=== PATIENT | male | born 1965 | race Caucasian/White ===

== ENCOUNTER → 2019-10-07 | Outpatient (CLI) | payer OTHER ==
[2019-10-07 08:31] LABS: Basophils # (A) 0.1 k/uL (0-0.2); Basophils % (A) 2 %; Eosinophils # (A) 0.1 k/uL (0-0.7); Eosinophils % (A) 2 %; HCT 46.6 % (39.0-53.0); HGB 15.2 gm/dL (13.0-17.5); Lymphocytes # (A) 1.6 k/uL (1.0-4.8); Lymphocytes % (A) 39 %; MCH 31.1 pg (25.0-35.0); MCHC 32.5 g/dL (31.0-37.0); MCV 95.7 fL (80.0-100.0); Mean Platelet Volume 7.5; Monocytes # (A) 0.3 k/uL (0-1.0); Monocytes % (A) 7 %; Neutrophils # (A) 1.9 k/uL (1.3-7.7); Neutrophils % (A) 47 %; Platelet Count 198 k/uL (150-450); RBC 4.88 m/uL (4.30-5.90); WBC 4.1 k/uL (3.8-10.6)
[2019-10-07 17:49] LABS: African American GFR (CKD) 119.9 (60.0-200.0); Albumin 4.9 g/dL (3.80-4.90); Albumin/Globulin Ratio 2.33 (1.60-3.17); Anion Gap 8.5 mmol/L (4.00-12.00); BUN/Creat Ratio 13.75 Ratio (12.00-20.00); Calcium 9.4 mg/dL (8.7-10.3); Carbon Dioxide 26.5 mmol/L (21.6-31.8); Chol/HDL Ratio 2.03; Globulin 2.1 g/dL (1.6-3.3); LDL Cholesterol,Calculated 97.6 mg/dL (0.0-131.0); Non-African American GFR(CKD) 103.4 (60.0-200.0); Potassium 4.8 mmol/L (3.5-5.5); Total Bilirubin 0.3 mg/dL (0.2-1.2); VLDL Calculation 25.4 mg/dL (5.00-40.00)
== END ==
LOC: LABWHC1 08:11
PROVIDERS: ATTEND Internal Medicine Cardiovascular Disease
DX: I10 Essential (primary) hypertension (principal)
CPT/HCPCS: 36415; 80053; 80061; 85025

== ENCOUNTER 2021-12-05 09:19 | Day surgery (SDC) | payer OTHER ==
[2021-12-02 15:50] VITALS: BMI 23.7
[~2021-12-05 09:19] MED LIST: LACTATED RINGERS 1,000 ML IV SCH; LIDOCAINE 1% (10MG/ML) FOR IV START INTRADERMA PRN; ONDANSETRON 4 MG/2 ML VIAL IVP PRN
[2021-12-05 09:45] VITALS: PULSE 65; RESP 16; TEMP 97.6
[2021-12-05] MEDS ORDERED: PROPOFOL 10 MG/ML 20 ML VIAL IV ONE (10:52)
--- NOTE | 2021-12-05 11:14 | P.PCN ---
Date of Procedure: 12/05/21 Procedure(s) Performed: BRIEF HISTORY: Patient is a 55-year-old pleasant white male scheduled for an elective colonoscopy as a part of surveillance screening for colorectal neoplasia. PROCEDURE PERFORMED: Colonoscopy with biopsy. PREOPERATIVE DIAGNOSIS: Screening For colon cancer. IV sedation per Anesthesia. PROCEDURE: After informed consent was obtained, the patient, was brought into the endoscopy unit. IV sedation was administered by Anesthesia under continuous monitoring. Digital rectal examination was normal. Initially the Olympus CF-160 flexible video colonoscope was then inserted in the rectum, gradually advanced into the cecum without any difficulty. Careful examination was performed as the scope was gradually being withdrawn. Ileocecal valve and the appendiceal orifice were visualized and appeared normal. Prep was excellent. Mucosa of the cecum, ascending colon, transverse colon, descending colon, sigmoid colon, and rectum appeared normal. The proximal rectum there was a 3 mm sessile polyp that was removed by cold biopsy. Retroflexion was performed in the rectum and no lesions were seen. The patient tolerated the procedure well. IMPRESSION: 3 mm sessile proximal rectal polyp status post cold biopsy Rest of the colon appeared normal RECOMMENDATIONS: Findings of this examination were discussed with the patient as well as his family. He was advised to follow with the biopsy results. If the biopsies adenoma he can have a repeat colonoscopy in 5 years..
[2021-12-05 11:28] VITALS: BP 154/89
== END 2021-12-05 11:57 | disposition home or self-care (01) ==
LOC: ORWHC2ENDO 09:19
PROVIDERS: ATTEND Internal Medicine Gastroenterology
DX: Z12.11 Encounter for screening for malignant neoplasm of colon (principal); K62.1 Rectal polyp; I10 Essential (primary) hypertension; Z79.899 Other long term (current) drug therapy; D64.9 Anemia, unspecified; Z98.890 Other specified postprocedural states
CPT/HCPCS: 88305; 45380; J2704

== ENCOUNTER → 2024-03-13 | Outpatient (CLI) | payer OTHER ==
--- NOTE | 2024-04-04 15:43 | MR ---
Patient: Ash Connor Ordering Physician: Unknown, Unknown ID: [id number] Phone, Pager: Phone: N /A Pager: N/A : [phone] Age/Gender: 58Y, M Primary Location: N/A Procedure: MR Prostate wo/w con Study Date: 03/13/2024 5:04:02 AM EXAMINATION TYPE: MR Prostate wo/w con DATE OF EXAM: 03/15/2024 8:23 AM COMPARISON: None. CLINICAL INDICATION: Elevated PSA. TECHNIQUE: Multi-planar, multi-sequence imaging of the pelvis is performed prior to and following the uncomplicated administration of bolus intravenous gadolinium. CONTRAST: 7 cc Gadavist. Interpretive Criteria: PI-RADS v2.1 SERUM PSA: 02-03-24 = 6.51 01-26-24 = 5.27 SURGICAL PATHOLOGY: No data available. FINDINGS: Prostatic dimensions: 4.6 x 4.7 x 3.5 cm. "Bullet" Volume:49.53 (PSA density=0.13 ng/mL/mL) CENTRAL GLAND (Central and Transition Zones/CZ+TZ): Multiple bilateral, heterogenous appearing hypertrophic stromal nodules, without suspicious lesion. M edian lobe hypertrophy with protrusion into the base of the bladder. (PI-RADS 2) PERIPHERAL ZONE (PZ): 6 mm right posterior lateral peripheral high DWI and low ADC signal lesion in the mid gland/apex. (PI -RADS 4) SEMINAL VESICLES (SV): Symmetric and unremarkable. PERIPROSTATIC TISSUES: Unremarkable. LYMPH NODES: No enlarged pelvic lymph node. REMAINING PELVIS: Bladder wall is within normal limits given distention. No abnormal free or organized intrapelvic fluid collection. No pathologic bowel dilation or mural thickening. Bilateral fat containing inguinal hernias. High T2 signal near the insertion of the hamstrings on the left. OSSEOUS STRUCTURES: No suspicious osseous abnormality. IMPRESSION: 1. Right posterior peripheral zone apex/mid gland 6 mm (PI-RADS 4) 2. Mild BPH, estimated gland volume 49.53 mL. 3. No suspicious osseous lesion. No lymphadenopathy. No evidence of prostate adenocarcinoma involving the periprostatic tissues. 4. Left hamstring high T2 signal correlate with pain and history of injury.
== END | disposition home or self-care (01) ==
LOC: RADMRIMAIN 06:00
PROVIDERS: ATTEND Urology
DX: R97.20 Elevated prostate specific antigen [PSA] (principal); N40.0 Benign prostatic hyperplasia without lower urinary tract symptoms; M54.6 Pain in thoracic spine
CPT/HCPCS: 72197; A9585

== ENCOUNTER → 2024-04-04 | Outpatient (CLI) | payer OTHER ==
[2024-04-04 15:09] LABS: Basophils # (A) 0.06 X 10*3/uL (0.00-0.10); Basophils % (A) 1.1 %; Eosinophils # (A) 0.04 X 10*3/uL (0.04-0.35); Eosinophils % (A) 0.7 %; HCT 37.8 % (39.6-50.0); Lymphocytes # (A) 1.36 X 10*3/uL (0.90-5.00); Lymphocytes % (A) 24.2 %; MCH 31.3 pg (27.0-32.0); MCHC 34.4 g/dL (32.0-37.0); MCV 91.1 FL (80.0-97.0); Monocytes # (A) 0.48 X 10*3/uL (0.20-1.00); Monocytes % (A) 8.5 %; NRBC Per 100 WBC 0 X 10*3/uL (0.00-0.01); Neutrophils # (A) 3.66 X 10*3/uL (1.80-7.70); Neutrophils % (A) 65.1 %; Platelet Count 251 X 10*3/uL (140-440); RBC 4.15 X 10*6/uL (4.40-5.60); RDW 11.9 % (11.5-14.5); WBC 5.62 X 10*3/uL (4.50-10.00)
[2024-04-04 15:27] LABS: BUN/Creat Ratio 15.43 Ratio (12.00-20.00); Blood Urea Nitrogen 10.8 mg/dL (9.0-27.0); Calcium 9.3 mg/dL (8.7-10.3); Carbon Dioxide 24.4 mmol/L (21.6-31.8); Chloride 92 mmol/L (96-109); Glucose 102 mg/dL (70-110); Potassium 4.8 mmol/L (3.5-5.5); Sodium 128 mmol/L (135-145)
== END | disposition home or self-care (01) ==
LOC: LABWHC1 08:30
PROVIDERS: ATTEND Urology
DX: Z01.818 Encounter for other preprocedural examination
CPT/HCPCS: 36415; 80048; 85025

== ENCOUNTER 2024-04-11 11:40 | Day surgery (SDC) | payer OTHER ==
[2024-04-06 09:41] VITALS: BMI 23.0
--- NOTE | 2024-04-07 07:05 | P.GSHP ---
History of Present Illness H&P Date: 04/07/24 Chief Complaint: Elevated PSA level The patient is a 58-year-old white male with a gradually rising PSA level which was most recently 6.51. JULIANNA revealed the prostate to be mildly enlarged with focal firmness at the lateral aspect of the right mid lobe. MRI shows a prostate volume of 49.53 cc, with a 6 mm right peripheral zone PI-RADS 4 lesion at the mid gland level. He has been advised to undergo MRI fusion biopsies and comes for this reason. - Cardiovascular Cardiovascular: Reports high blood pressure - Genitourinary (Male) Genitourinary: Reports nocturia Past Medical History Past Medical History: Hypertension Additional Past Medical History / Comment(s): "low hgb", elevated PSA History of Any Multi-Drug Resistant Organisms: None Reported Additional Past Surgical History / Comment(s): ORIF lt shoulder, lt carpel tunnel October 10, 2021 Additional Past Anesthesia/Blood Transfusion Reaction / Comment(s): "felt like worse hangeover I have ever had with shoulder surgery" Smoking Status: Never smoker - Past Family History Mother Family Medical History: No Reported History Father Family Medical History: CVA/TIA, Hypertension Medications and Allergies Home Medications Medication Instructions Recorded Confirmed Type Losartan/Hydrochlorothiazide 1 tab PO DAILY 04/06/24 04/06/24 History [Losartan-Hctz 100-12.5 mg Tab] Allergies Allergy/AdvReac Type Severity Reaction Status Date / Time No Known Allergies Allergy Verified 04/06/24 08:39 Surgical - Exam - General well developed ( out of passed a stone), well nourished, no distress - Respiratory normal respiratory effort - Abdomen Abdomen: soft, non tender, no guarding, no rigid, no rebound - Genitourinary normal penis with no external lesions (-Aspirin), testicles non-tender - Rectum Rectum: normal sphincter tone, no masses, other (Prostate mildly enlarged with firmness noted laterally at the right mid gland.) - Psychiatric oriented to time, oriented to person, oriented to place, speech is normal, memory intact Assessment and Plan (1) Elevated prostate specific antigen [PSA] Status: Acute Code(s): R97.20 - ELEVATED PROSTATE SPECIFIC ANTIGEN [PSA] SNOMED Code(s): 267045267 Plan: MRI fusion transrectal biopsies of the prostate. The procedure has been reviewed in detail with the patient, who is aware of potential risks which in clude anesthesia, bleeding, and infection. The patient is aware that the procedure will be performed by Dr. Farias.
[2024-04-11 12:26] VITALS: TEMP 97.8
[2024-04-11] MEDS: GENTAMICIN 40 MG/ML 2 ML VIAL IM PRN (12:27)
[2024-04-11] MEDS: LACTATED RINGERS 1,000 ML IV SCH (12:27)
[2024-04-11] MEDS: LACTATED RINGERS 1,000 ML IV ONE (12:38)
[2024-04-11] MEDS ORDERED: LIDOCAINE 1% INJ 10MG/ML (20 ML MDV) ONE (15:00)
[2024-04-11] MEDS ORDERED: PROPOFOL 10 MG/ML 20 ML VIAL IV ONE (15:00)
--- NOTE | 2024-04-11 15:48 | P.OP ---
Date of Procedure: 04/11/24 Preoperative Diagnosis: Elevated PSA Postoperative Diagnosis: Same Procedure(s) Performed: MRI fusion biopsy of the prostate Anesthesia: MAC Surgeon: Esa Farias Pathology: other (Prostate biopsies) Condition: stable Disposition: PACU Indications for Procedure: The patient is a 58-year-old white male with a gradually rising PSA level which was most recently 6.51. JULIANNA revealed the prostate to be mildly enlarged with focal firmness at the lateral aspect of the right mid lobe. MRI shows a prostate volume of 49.53 cc, with a 6 mm right peripheral zone PI-RADS 4 lesion at the mid gland level. He has been advised to undergo MRI fusion biopsies and comes for this reason. Description of Procedure: The patient was taken to the operating room and placed in the left lateral decubitus position. The [place] transrectal ultrasound probe was placed intrarectally. It was then placed within the stand of the [employer] MRI/TRUS Fusion for Prostate Biopsy system. The prostate was imaged in both the axial and sagittal planes,L. Using the Biopsy gun, 4 biopsies were obtained from the target lesion, there were was one lesions, . The remaining 12 biopsies of the peripheral zone were obtained utilizing a standard template. Once the procedure was completed, the ultrasound probe was removed. The patient tolerated the procedure well was taken to the recovery room stable condition
[2024-04-11 16:03] VITALS: BP 135/82; PULSE 68; RESP 16
== END 2024-04-11 16:17 | disposition home or self-care (01) ==
LOC: OR 11:40
PROVIDERS: ATTEND Urology
DX: C61 Malignant neoplasm of prostate (principal); I10 Essential (primary) hypertension; Z79.899 Other long term (current) drug therapy
CPT/HCPCS: 55700; 88305; J1580; J2001; J2704

== ENCOUNTER → 2024-07-11 | Outpatient (CLI) | payer OTHER ==
[2024-07-11 16:35] LABS: Basophils # (A) 0.03 X 10*3/uL (0.00-0.10); Basophils % (A) 0.4 %; Eosinophils # (A) 0.02 X 10*3/uL (0.04-0.35); Eosinophils % (A) 0.3 %; HCT 40.1 % (39.6-50.0); Lymphocytes # (A) 1.26 X 10*3/uL (0.90-5.00); Lymphocytes % (A) 17.8 %; MCH 31.2 pg (27.0-32.0); MCHC 34.9 g/dL (32.0-37.0); MCV 89.3 FL (80.0-97.0); Monocytes # (A) 0.43 X 10*3/uL (0.20-1.00); Monocytes % (A) 6.1 %; NRBC Per 100 WBC 0 X 10*3/uL (0.00-0.01); Neutrophils # (A) 5.32 X 10*3/uL (1.80-7.70); Neutrophils % (A) 75.3 %; Platelet Count 274 X 10*3/uL (140-440); RBC 4.49 X 10*6/uL (4.40-5.60); RDW 11.9 % (11.5-14.5); WBC 7.07 X 10*3/uL (4.50-10.00)
[2024-07-11 16:45] LABS: Blood Urea Nitrogen 11.2 mg/dL (9.0-27.0); Carbon Dioxide 25.8 mmol/L (21.6-31.8); Chloride 91 mmol/L (96-109); Glucose 104 mg/dL (70-110); Potassium 4.6 mmol/L (3.5-5.5); Sodium 128 mmol/L (135-145)
[2024-07-11 16:46] LABS: Calcium 9.4 mg/dL (8.7-10.3)
== END | disposition home or self-care (01) ==
LOC: LABPAT 11:45
PROVIDERS: ATTEND Urology
DX: Z01.812 Encounter for preprocedural laboratory examination (principal); C61 Malignant neoplasm of prostate
CPT/HCPCS: 80048; 85025; 86850; 86900; 86901

== ENCOUNTER 2024-07-13 10:18 | Day surgery (SDC) | payer OTHER ==
--- NOTE | 2024-07-11 15:18 | P.HPIHPCON ---
History of Present Illness H&P Date: 07/11/24 Chief Complaint: Prostate cancer This is a 58-year-old male with history of [place] 7(3+4) prostate cancer, option of radiation therapy versus robotic radical prostatectomy was discussed in details. Risk-benefit and rationale of each approach were discussed, he agreed to proceed with a robotic radical prostatectomy. Aware of the risk which includes but not limited to bleeding, infection, injury to nearby organs, urinary incontinence, erectile dysfunction. Risk of cancer recurrence, the need for additional treatments and the need for postoperative surveillance was also discussed. He understood all the risk and agreed to proceed Consent for Procedure: I have explained the operation/procedure to the patient, including the risks, benefits, side effects, alternative therapies (including not receiving the proposed treatment or service), the likelihood of the patient achieving his/her goals, and potential recuperation problems for the procedure/sedation/analgesia, as well as any blood products, if indicated. I also explained to the patient the risks, benefits and side effects of the alternatives, as well as the risks related to not receiving the proposed procedure, care, treatment, or services. Past Medical History Past Medical History: Cancer, Hypertension Additional Past Medical History / Comment(s): "low hgb", prostate cancer, History of Any Multi-Drug Resistant Organisms: None Reported Past Surgical History: Orthopedic Surgery Additional Past Surgical History / Comment(s): ORIF lt shoulder, lt carpel tunnel October 10, 2021,fx collar bone has plate and screws, mri prostate bx Additional Past Anesthesia/Blood Transfusion Reaction / Comment(s): "felt like worse hangeover I have ever had with shoulder surgery" Smoking Status: Never smoker - Past Family History Mother Family Medical History: No Reported History Father Family Medical History: CVA/TIA, Hypertension Medications and Allergies Home Medications Medication Instructions Recorded Confirmed Type Losartan/Hydrochlorothiazide 1 tab PO DAILY 04/06/24 07/11/24 History [Losartan-Hctz 100-12.5 mg Tab] Allergies Allergy/AdvReac Type Severity Reaction Status Date / Time No Known Allergies Allergy Verified 07/11/24 12:42 Surgical - Exam - General no distress, no pain - Eyes normal ocular movement, no pale - ENT normal nares, normal mucosa - Respiratory normal expansion, normal respiratory effort - Abdomen Abdomen: soft, non tender Assessment and Plan Assessment: OR for robotic radical prostatectomy, with bilateral pelvic lymph node dissection
[2024-07-13] MEDS ORDERED: LIDOCAINE 1% (10MG/ML) FOR IV START INTRADERMA PRN (10:26)
[2024-07-13] MEDS ORDERED: HYDROmorphone 0.5 MG/0.5 ML SYRINGE IVP PRN (10:26)
[2024-07-13] MEDS: IV FLUID CONTINUATION 1,000 ML IV ONE ×2 (10:59)
[2024-07-13] MEDS: LACTATED RINGERS 1,000 ML IV SCH (11:01)
[2024-07-13] MEDS: DEXAMETHASONE SOD PHOSPHATE 4 MG/ML 1 ML VIAL IV ONE (11:06)
[2024-07-13] MEDS: ONDANSETRON 4 MG/2 ML VIAL IVP ONE (11:06)
[2024-07-13] MEDS: MIDAZOLAM 2 MG/2 ML VIAL IV PRN (11:15)
[2024-07-13] MEDS: fentaNYL (PF) 50 MCG/ML 2 ML AMP IVP PRN (11:15)
[2024-07-13] MEDS: HEPARIN SODIUM,PORCINE 5,000 UNIT/ML 1 ML VIAL SQ PRN (11:34)
--- NOTE | 2024-07-13 11:35 | P.ANPRN ---
Procedure Note - Anesthesia - Nerve Block Performed Bilateral Erector Spinae Single Time Out Performed: Yes Date of Procedure: 07/13/24 Procedure Start Time: 11:15 Procedure Stop Time: :20 Location of Patient: PreOp Indication: Acute Post-Operative Pain, Analgesia, Requested by Surgeon Sedation Type: Sedate with meaningful contact maintained Preparation: Sterile Prep Position: Prone Catheter: None Needle Types: Pajunk Needle Gauge: 21 Ultrasound used to visualize needle placement: Yes Ultrasound used to observe medication spread: Yes Injectate: 0.5% Ropivacaine (see comment for volume) ([id number], needle level L1---Each side.) Blood Aspirated: No Pain Paresthesia on Injection Noted: No Resistance on Injection: Normal Image Stored and Saved: Yes Events: Uneventful and Well Tolerated
[2024-07-13] MEDS ORDERED: ONDANSETRON 4 MG/2 ML VIAL IVP PRN (11:45)
[2024-07-13] MEDS ORDERED: ROPIVACAINE 5 MG/ML 30 ML VIAL ONE (12:06)
[2024-07-13] MEDS ORDERED: MIDAZOLAM 2 MG/2 ML VIAL ONE (12:06)
[2024-07-13] MEDS ORDERED: NEOSTIGMINE 1 MG/ML 10 ML VIAL ONE (12:06)
[2024-07-13] MEDS ORDERED: SUCCINYLCHOLINE CHLORIDE 200 MG/10 ML VIAL IV ONE (12:06)
[2024-07-13] MEDS ORDERED: HYDROmorphone (PF) 1 MG/ML ONE (12:06)
[2024-07-13] MEDS ORDERED: DEXAMETHASONE SOD PHOSPHATE 4 MG/ML 1 ML VIAL ONE (12:06)
[2024-07-13] MEDS ORDERED: ROCURONIUM 10 MG/ML (5 ML VIAL) IV ONE (12:06)
[2024-07-13] MEDS ORDERED: fentaNYL (PF) 50 MCG/ML 2 ML AMP ONE (12:06)
[2024-07-13] MEDS ORDERED: GLYCOPYRROLATE 0.2 MG/ML 2 ML VIAL ONE (12:06)
[2024-07-13] MEDS ORDERED: PROPOFOL 10 MG/ML 20 ML VIAL IV ONE (12:06)
[2024-07-13] MEDS ORDERED: LIDOCAINE 1% INJ 10MG/ML (20 ML MDV) ONE (12:06)
[2024-07-13] MEDS: BUPIVACAINE (PF) 0.25% 30 ML VIAL SQ ONE ×2 (12:33→15:40)
[2024-07-13] MEDS: LACTATED RINGERS 1,000 ML IV ONE (15:06)
--- NOTE | 2024-07-13 15:34 | P.OP ---
Date of Procedure: 07/13/24 Preoperative Diagnosis: Prostate cancer Postoperative Diagnosis: Same Procedure(s) Performed: Robotic assisted laparoscopic radical prostatectomy with bilateral pelvic lymph node dissection Anesthesia: VAN Surgeon: Esa Farias Estimated Blood Loss (ml): 150 Pathology: other (Prostate, bilateral seminal vesicle, bilateral pelvic lymph nodes) Condition: stable Disposition: PACU Indications for Procedure: This is a 58-year-old male with history of [place] 7(3+4) prostate cancer, option of radiation therapy versus robotic radical prostatectomy was discussed in details. Risk-benefit and rationale of each approach were discussed, he agreed to proceed with a robotic radical prostatectomy. Aware of the risk which includes but not limited to bleeding, infection, injury to nearby organs, urinary incontinence, erectile dysfunction. Risk of cancer recurrence, the need for additional treatments and the need for postoperative surveillance was also discussed. He understood all the risk and agreed to proceed Description of Procedure: After preoperative antibiotics were started, the patient was taken to the operating room. Anesthesia was induced and the patient was placed in a supine position, with adequate padding of the pressure points, shoulders, back, legs and arms. He was then prepped and draped in the standard fashion. A critical pause was performed using two patient identifiers. A 16F siegel catheter was placed to gravity drainage. A pneumo-peritoneum was created with placement of a Veress needle to 20 mm Hg without complication, and a 8 Fr trocar was placed above the umbillicus. Under direct vision a 8mm robotic ports was placed lateral to each rectus slightly below the camera port. The left iliac fossa 8mm port was placed. The right occupational therapy assistant right iliac fossa 12mm port and right paramedian 5mm portwere placed. After the patient was placed in the trendelenberg position, the robot was then docked to the 8mm robotic ports and then each robotic arm and tower was checked in relation to the patient's legs and hands to avoid inadvertent compression. The peritoneal cavity was inspected. An inverted U-shaped incision began laterally to the left medial umbilical ligament and extended high across the midline to the right umbilical ligament. The limbs of the "U" extended to the level of the vasa on both sides. We next developed the preperitoneal space and the space of Retzius. Cautery was used to dissected the bladder away from the prostate. After the anterior bladder neck was incised and the bladder entered the the posterior bladder neck was exposed and the ureteral orifces identified. The posterior bladder neck was then incised and dissected away from the prostate. The vas and the seminal vesicles were now exposed and dissected to their insertions into the prostate and were not spared. The posterior layer of the Denonvillier's fascia was incised to enter carol the plane between prostate and perirectal fat. Lateral pedicle was controlled with the vessel sealer, complete nerve preservation was performed bilaterally. The puboprostatic ligament was incised where it inserted into the apex of the prostate and a plane between urethra and dorsal venous complex developed to expose the anterior urethral surface. The anterior wall of the urethra was transected with the cut setting a few millimeters distal to the apex of the prostate. The dorsal vein was ligated using 3-0 V lock bilateral obturator and external iliac lymph node packets were carefully dissected after careful visualization of the hypogastric artery and obturator nerve. There was careful attention paid to hemostasis with judicious use of cautery. The urethrovesical anastomosis was performed . the posterior denovillers was reapproximated using 3-0 V lock. A 6 and 6 inch 3-0 V-Lock suture was used to anastomose the urethra and bladder, starting at the 6:00 posterior position. Mucosa was secured in every stitch, to ensure a mucosa to mucosa anastomosis. The stitch was regularly cinched and the anastomosis tightened. Care was taken to not violate the ureteral orifices. The Siegel catheter was advanced, the bladder filled, and the anastomosis was tested, as described above. Anastomsis was watertight at 200 mL The periumbilical fascia was closed with 1-0-PDS suture in figure of eight fashion. All ports were closed with a subcuticular 4-0 monocryl and Dermabond. Sponge, instrument, and needle counts were correct at the end of the case x2. All specimens including prostate and lymph nodes were sent to pathology for diagnosis and will be available in a week. The patient tolerated the surgery well and without complication. He awoke without difficulty and was taken to the recovery room in stable condition
[2024-07-13] MEDS: HYDROmorphone 1 MG/ML 1 ML SYRINGE IVP PRN (17:51)
[2024-07-13] MEDS: HEPARIN SODIUM,PORCINE 5,000 UNIT/ML 1 ML VIAL SQ SCH (17:51)
[2024-07-13] MEDS ORDERED: LORazepam 2 MG/ML INJ IV PRN (17:52)
[2024-07-13] MEDS: D5-0.45% NACL WITH KCL 20MEQ/L 1,000 ML IV SCH (18:53)
[2024-07-13] MEDS: KETOROLAC 15 MG/ML 1 ML VIAL IVP PRN (23:35)
[2024-07-14 07:48] VITALS: RESP 18
--- NOTE | 2024-07-14 08:26 | P.PN ---
Subjective Progress Note Date: 07/14/24 the patient is in the hospital for prostate cancer surgery. He underwent a robotic-assisted radical prostatectomy yesterday. He is having moderate discomfort at this point in time. Objective - Vital Signs Vital signs: Vital Signs Temp 97.6 F 07/14/24 07:26 Pulse 81 07/14/24 07:26 Resp 18 07/14/24 07:26 BP 142/81 07/14/24 07:26 Pulse Ox 97 07/14/24 07:26 FiO2 Intake & Output 07/13/24 07/14/24 07/14/24 18:59 06:59 18:59 Intake Total 2049 Output Total 800 1000 Balance 1250 -1000 Weight 78.3 kg Intake: IV 2049 Output: Urine 650 1000 Estimated Blood Loss 150 Other: Voiding Method Indwelling Catheter Assessment and Plan Assessment: impression: Postoperative day #1 robotic-assisted radical prostatectomy. Recommendations. The patient will be given a regular diet. He'll be encouraged to ambulate. If he feels better later today may be discharged home. This is been discussed with the patient.
[2024-07-14] MEDS: LOSARTAN 50 MG TAB PO SCH (08:39)
[2024-07-14] MEDS: hydroCHLOROthiazide 12.5 MG CAP PO SCH (08:39)
[2024-07-14] MEDS ORDERED: NON FORMULARY DRUG (Losartan/Hydrochlorothiazide [Losartan-Hctz 100-12.5 Mg Tab] 1 EACH Ta PO SCH (09:00)
[2024-07-14] MEDS: HYDROcodone/APAP 5-325MG 1 EACH TAB PO PRN (13:40)
[2024-07-14 14:17] VITALS: BP 126/79; PULSE 90; TEMP 98
--- NOTE | 2024-07-14 15:28 | P.DS ---
Providers Attending physician: Esa Farias MD Primary care physician: Roderick [facility]ult[facility] Course: This is a 58-year-old male with history of prostate cancer. Underwent a robotic prostatectomy on July 13. Please see op note dated July 13 for surgery details. Patient was admitted to the hospital postoperatively. He was discharged home on postop day #1. At time of discharge he was tolerating a diet, ambulating, and pain was controlled. He was discharged home with a Jackson catheter Plan - Discharge Summary Discharge Rx Participant: Yes New Discharge Prescriptions: New Ciprofloxacin HCl [Cipro] 250 mg PO Q12HR #6 tablet Ketorolac [Toradol] 10 mg PO Q6HR PRN #15 tab PRN Reason: Pain No Action Losartan/Hydrochlorothiazide [Losartan-Hctz 100-12.5 mg Tab] 1 tab PO DAILY Discharge Medication List Losartan/Hydrochlorothiazide [Losartan-Hctz 100-12.5 mg Tab] 1 tab PO DAILY 04/06/24 [History] Ciprofloxacin HCl [Cipro] 250 mg PO Q12HR #6 tablet 07/14/24 [Rx] Ketorolac [Toradol] 10 mg PO Q6HR PRN #15 tab 07/14/24 [Rx] Activity/Diet/Wound Care/Special Instructions: Increase fluid intake It is normal to have blood in the urine Start your antibiotics the Cipro on July 23
== END 2024-07-14 17:45 | disposition home or self-care (01) ==
LOC: OR 10:18 → 4SSUR 16:35 → OR 07-14 17:45
PROVIDERS: ATTEND Urology
DX: C61 Malignant neoplasm of prostate (principal); I10 Essential (primary) hypertension; G89.18 Other acute postprocedural pain; F10.90 Alcohol use, unspecified, uncomplicated; F12.90 Cannabis use, unspecified, uncomplicated; Z79.899 Other long term (current) drug therapy
CPT/HCPCS: 38571; 55866; S2900; 64999; 88307; 88309

== ENCOUNTER 2024-07-16 17:41 | Observation (INO) | payer OTHER ==
[2024-07-16 18:51] LABS: Basophils % (A) 0 %; Eosinophils # (A) 0.1 k/uL (0-0.7); Eosinophils % (A) 0 %; HCT 36.7 % (39.0-53.0); HGB 12.5 gm/dL (13.0-17.5); Lymphocytes # (A) 1.4 k/uL (1.0-4.8); Lymphocytes % (A) 10 %; MCH 31.6 pg (25.0-35.0); MCHC 34.1 g/dL (31.0-37.0); MCV 92.8 fL (80.0-100.0); Mean Platelet Volume 6.5; Monocytes # (A) 0.7 k/uL (0-1.0); Monocytes % (A) 5 %; Neutrophils # (A) 11.5 k/uL (1.3-7.7); Neutrophils % (A) 83 %; Platelet Count 259 k/uL (150-450); RBC 3.96 m/uL (4.30-5.90); RDW 11.7 % (11.5-15.5); WBC 13.8 k/uL (3.8-10.6)
[2024-07-16 18:57] LABS: Appearance,Urine Clear (Clear); Bilirubin,Urine Negative (Negative); Blood,Urine Large (Negative); Color,Urine Yellow; Glucose,Urine (UA) Negative (Negative); Hyaline Casts,Urine 1 /lpf (0-2); Ketones,Urine 1+ (Negative); Leukocyte Esterase,Urine Moderate (Negative); Mucus,Urine Occasional /hpf; Nitrite,Urine Negative (Negative); Protein,Urine 1+ (Negative); RBC,Urine >182 /hpf (0-5); Specific Gravity,Urine 1.021 (1.001-1.035); Urobilinogen,Urine <2.0 mg/dL (<2.0); WBC,Urine 34 /hpf (0-5)
[2024-07-16 19:00] LABS: ALT 22 U/L (4-49); AST 22 U/L (17-59); African American GFR (CKD) >90 (>60 ml/min/1.73 sqM); Albumin 3.9 g/dL (3.5-5.0); Alkaline Phosphatase 62 U/L (38-126); Anion Gap 6 mmol/L; Blood Urea Nitrogen 11 mg/dL (9-20); Calcium 8.9 mg/dL (8.4-10.2); Carbon Dioxide 27 mmol/L (22-30); Chloride 92 mmol/L (98-107); Glucose 100 mg/dL (74-99); Lipase 55 U/L (23-300); Non-African American GFR(CKD) >90 (>60 ml/min/1.73 sqM); Potassium 3.9 mmol/L (3.5-5.1); Sodium 125 mmol/L (137-145); Total Bilirubin 0.8 mg/dL (0.2-1.3); Total Protein 6.1 g/dL (6.3-8.2)
[2024-07-16 19:02] LABS: Prothrombin Time 10.7 sec (10.0-12.5)
--- NOTE | 2024-07-16 20:20 | CT ---
EXAMINATION TYPE: CT abdomen pelvis w con DATE OF EXAM: 07/16/2024 7:49 PM COMPARISON: None CLINICAL INDICATION: Male, 58 years old with history of abdominal pain; Prostatectomy x 3 days ago, t esticular and scrotum pain and swelling TECHNIQUE: Axial CT abdomen pelvis w con;Sagittal and coronal reformats were created on a separate w orkstation. Contrast used:100 mL of Isovue 300 with IV Contrast, (none if empty) Oral contrast used: without Oral Contrast (none if empty) CT DLP: 857.8 mGycm, Automated exposure control for dose reduction was used. FINDINGS: LOWER CHEST: Atelectasis in the lung bases. ABDOMEN LIVER: Unremarkable GALLBLADDER AND BILE DUCTS: Unremarkable. PANCREAS: Unremarkable. SPLEEN: Unremarkable. ADRENAL GLANDS: Unremarkable. KIDNEYS AND URETERS: No evidence of hydronephrosis or renal calculus. The ureters are unremarkable. PELVIS BLADDER: Nondistended with Jackson catheter in place. REPRODUCTIVE: Prostate gland is surgically absent. Few foci of gas seen around the surgical bed. Flui d is seen in the bilateral scrotum. ABDOMEN & PELVIS STOMACH AND BOWEL: No evidence of bowel obstruction. Mild wall thickening of the transverse colon whi ch may be due to nondistention/peristalsis. PERITONEUM/RETROPERITONEUM: No evidence of pneumoperitoneum or free fluid. VASCULATURE: No evidence of aortic aneurysm. MUSCULOSKELETAL: No acute osseous abnormalities LYMPH NODES: No gross evidence for lymphadenopathy. SOFT TISSUE/ABDOMINAL WALL: Unremarkable There is fat stranding and septations gas tracking along the abdominal wall bilaterally right greater than left. Streaky edema is present. Fluid and gas tracking in the scrotum. IMPRESSION: 1. Extensive subcutaneous gas and edema tracking along the anterior abdominal wall and extending int o the scrotum with bilateral hydroceles. Infection is not excluded at this time. Follow-up with surge on and correlation with history recommended. No discrete organizing fluid collections at this time ot her than the fluid in the scrotum. 2. Mild wall thickening of the transverse colon correlate for some colitis. [facility], , 07/16/2024 8:18 PM
[2024-07-16] MEDS ORDERED: NALOXONE 0.4 MG/ML 1 ML VIAL IV PRN (20:48)
--- NOTE | 2024-07-16 20:48 | ED ---
Male Urogenital HPI - General Chief complaint: Urogenital Stated complaint: Post op complications Time Seen by Provider: 07/16/24 18:00 Source: patient, family Mode of arrival: ambulatory Limitations: no limitations - History of Present Illness Initial comments: 58-year-old male with past medical history of prostate cancer who presents to the emergency department with abdominal pain. Patient had a radical prostatectomy done on July 13. He was discharged home on the on Toradol and Cipro. States that he has had some abdominal bruising and pain however it appears to be getting worse. States that the bruising and swelling extends into his scrotum and penile shaft. He admits to generalized abdominal discomfort which is worse after eating therefore he has not been eating much. He denies vomiting. Admits to continued output from his Jackson catheter. The patient has had several bowel movements which has been soft in nature. He denies any fevers. No other alleviating, precipitating modifying factors - Related Data Home Medications Medication Instructions Recorded Confirmed Losartan/Hydrochlorothiazide 1 tab PO DAILY 07/16/24 07/16/24 [Losartan-Hctz 100-25 mg Tab] Previous Rx's Medication Instructions Recorded Ciprofloxacin HCl [Cipro] 250 mg PO Q12HR #6 tablet 07/14/24 Ketorolac [Toradol] 10 mg PO Q6HR PRN #15 tab 07/14/24 Allergies Allergy/AdvReac Type Severity Reaction Status Date / Time No Known Allergies Allergy Verified 07/16/24 18:47 Review of Systems ROS Statement: Those systems with pertinent positive or pertinent negative responses have been documented in the HPI. ROS Other: All systems not noted in ROS Statement are negative. Past Medical History Past Medical History: Hypertension, Prostate Disorder Additional Past Medical History / Comment(s): "low hgb" History of Any Multi-Drug Resistant Organisms: None Reported Additional Past Surgical History / Comment(s): ORIF lt shoulder, lt carpel tunnel October 10, 2021. prostatectomy Additional Past Anesthesia/Blood Transfusion Reaction / Comment(s): "felt like worse hangeover I have ever had with shoulder surgery" Past Psychological History: No Psychological Hx Reported Past Drug Use History: None Reported - Past Family History Mother Family Medical History: No Reported History Father Family Medical History: CVA/TIA, Hypertension General Exam Limitations: no limitations General appearance: alert, in no apparent distress Head exam: Present: atraumatic, normocephalic, normal inspection Eye exam: Present: normal appearance, PERRL, EOMI. Absent: scleral icterus, conjunctival injection, periorbital swelling ENT exam: Present: normal exam, mucous membranes moist Neck exam: Present: normal inspection. Absent: tenderness, meningismus, lymphadenopathy Respiratory exam: Present: normal lung sounds bilaterally. Absent: respiratory distress, wheezes, rales, rhonchi, stridor Cardiovascular Exam: Present: regular rate, normal rhythm, normal heart sounds. Absent: systolic murmur, diastolic murmur, rubs, gallop, clicks GI/Abdominal exam: Present: soft, tenderness (To the right lower abdomen/right flank area where there is a large area of ecchymosis), normal bowel sounds. Absent: distended, guarding, rebound, rigid exam: Present: scrotal swelling, other (There is ecchymosis to the scrotum and penile shaft) Extremities exam: Present: normal inspection, full ROM, normal capillary refill. Absent: tenderness, pedal edema, joint swelling, calf tenderness Back exam: Present: normal inspection Neurological exam: Present: alert, oriented X3, CN II-XII intact Psychiatric exam: Present: normal affect, normal mood Skin exam: Present: warm, dry, intact, normal color. Absent: rash Course Vital Signs 07/16/24 07/16/24 07/16/24 17:56 18:04 19:33 Temperature 98.9 F Pulse Rate 84 85 76 Respiratory 20 20 16 Rate Blood Pressure 142/95 142/95 140/93 O2 Sat by Pulse 99 98 Oximetry Medical Decision Making - Medical Decision Making Was pt. sent in by a medical professional or institution (, PA, RADIAL DRILL OPERATOR, urgent care, hospital, or fpc...) When possible be specific @ -No Did you speak to anyone other than the patient for history (EMS, parent, family, police, friend...)? What history was obtained from this source @ -Spoke with for history Did you review nursing and triage notes (agree or disagree)? Why? @ -I reviewed and agree with nursing and triage notes Were old charts reviewed (outside hosp., previous admission, EMS record, old EKG, old radiological studies, urgent care reports/EKG's, fpc records)? Report findings @ -I reviewed the operative report from the Differential Diagnosis (chest pain, altered mental status, abdominal pain women, abdominal pain men, vaginal bleeding, weakness, fever, dyspnea, syncope, headache, dizziness, GI bleed, back pain, seizure, CVA, palpatations, mental health, musculoskeletal)? @ -Differential Abdominal Pain Men: Appendicitis, cholecystitis, diverticulosis, ischemic bowel, pancreatitis, hepatitis, UTI, gastroenteritis, AAA, incarcerated hernia, bowel obstruction, c onstipation, inflammatory bowel, hepatitis, peptic ulcer disease, splenic infarction, perforated viscus, testicular torsion, this is not meant to be an all-inclusive list EKG interpreted by me (3pts min.). @ -Not done X-rays interpreted by me (1pt min.). @ -None done CT interpreted by me (1pt min.). @ -Yes and demonstrates subcutaneous edema and air U/S interpreted by me (1pt. min.). @ -None done What testing was considered but not performed or refused? (CT, X-rays, U/S, labs)? Why? @ -None What meds were considered but not given or refused? Why? @ -None Did you discuss the management of the patient with other professionals (professionals i.e. , PA, RADIAL DRILL OPERATOR, lab, RT, psych nurse, social security specialist, centerless grinder operator, teacher, telecommunications officer, caseworker)? Give summary @ -I spoke with Dr. Flores he does feel that the CT findings are normal for the postop period. He recommended medicine admission for the hyponatremia with urology on consult. Because of the leukocytosis he does recommend empiric coverage with Rocephin. Was smoking cessation discussed for >3mins.? @ -No Was critical care preformed (if so, how long)? @ -No Were there social determinants of health that impacted care today? How? (Homelessness, low income, unemployed, alcoholism, drug addiction, transportation, low edu. Level, literacy, decrease access to med. care, snf, rehab)? @ -No Was there de-escalation of care discussed even if they declined (Discuss DNR or withdrawal of care, Hospice)? DNR status @ -No What co-morbidities impacted this encounter? (DM, HTN, Smoking, COPD, CAD, Cancer, CVA, ARF, Chemo, Hep., AIDS, mental health diagnosis, sleep apnea, morbid obesity)? @ -None Was patient admitted / discharged? Hospital course, mention meds given and route, prescriptions, significant lab abnormalities, going to OR and other pertinent info. @ -Upon arrival patient seen and evaluated in bed 18. Thorough history and physical exam was performed. Patient has extensive ecchymosis to the right flank and scrotal region. IV was established. Laboratory studies are conducted. Hemoglobin is 12.5 from 14. Patient is hyponatremic at 125. CT demonstrates subcutaneous air and edema. I did discuss this with Dr. Flores. He does feel as if this is normal postop findings. He felt as if the patient could go home on antibiotics. I did discuss the hyponatremia for which Dr. flores did recommend medicine admission with urology on consultation. His recommendation is Rocephin for antibiotics. I spoke with the patient. He is more comfortable being hospitalized. I will give the patient a 500 bag of normal saline as I feel his hyponatremia is due to hypovolemia. Repeat sodium is ordered for midnight. Patient will remain on 130 cc/hr. spoke with Dr. Vences who accepted the admission Undiagnosed new problem with uncertain prognosis? @ -No Drug Therapy requiring intensive monitoring for toxicity (Heparin, Nitro, Insulin, Cardizem)? @ -No Were any procedures done? @ -No Diagnosis/symptom? @ -Acute abdominal pain, abdominal wall ecchymosis, status post prostatectomy, hyponatremia Acute, or Chronic, or Acute on Chronic? @ -Acute Uncomplicated (without systemic symptoms) or Complicated (systemic symptoms)? @ -Complicated Side effects of treatment? @ -No Exacerbation, Progression, or Severe Exacerbation? @ -No Poses a threat to life or bodily function? How? (Chest pain, [place], [place], pneumonia, PE, COPD, DKA, ARF, appy, cholecystitis, CVA, Diverticulitis, Homicidal, Suicidal, threat to staff... and all critical care pts) @ -No - Lab Data Result diagrams: 07/16/24 18:11 07/17/24 05:19 Lab Results 07/16/24 07/16/24 07/16/24 Range/Units 18:11 18:11 18:11 WBC 13.8 H (3.8-10.6) k/uL RBC 3.96 L (4.30-5.90) m/uL Hgb 12.5 L (13.0-17.5) gm/dL Hct 36.7 L (39.0-53.0) % MCV 92.8 (80.0-100.0) fL MCH 31.6 (25.0-35.0) pg MCHC 34.1 (31.0-37.0) g/dL RDW 11.7 (11.5-15.5) % Plt Count 259 (150-450) k/uL MPV 6.5 Neutrophils % 83 % Lymphocytes % 10 % Monocytes % 5 % Eosinophils % 0 % Basophils % 0 % Neutrophils # 11.5 H (1.3-7.7) k/uL Lymphocytes # 1.4 (1.0-4.8) k/uL Monocytes # 0.7 (0-1.0) k/uL Eosinophils # 0.1 (0-0.7) k/uL Basophils # 0.0 (0-0.2) k/uL PT (10.0-12.5) sec INR (<1.2) Sodium 125 L (137-145) mmol/L Potassium 3.9 (3.5-5.1) mmol/L Chloride 92 L (98-107) mmol/L Carbon Dioxide 27 (22-30) mmol/L Anion Gap 6 mmol/L BUN 11 (9-20) mg/dL Creatinine 0.58 L (0.66-1.25) mg/dL Est GFR (CKD-EPI)AfAm >90 (>60 ml/min/1.73 sqM) Est GFR (CKD-EPI)NonAf >90 (>60 ml/min/1.73 sqM) Glucose 100 H (74-99) mg/dL Plasma Lactic Acid Aubrey 0.8 (0.7-2.0) mmol/L Calcium 8.9 (8.4-10.2) mg/dL Total Bilirubin 0.8 (0.2-1.3) mg/dL AST 22 (17-59) U/L ALT 22 (4-49) U/L Alkaline Phosphatase 62 (38-126) U/L Total Protein 6.1 L (6.3-8.2) g/dL Albumin 3.9 (3.5-5.0) g/dL Lipase 55 (23-300) U/L Urine Color Urine Appearance (Clear) Urine pH (5.0-8.0) Ur Specific [place] (1.001-1.035) Urine Protein (Negative) Urine Glucose (UA) (Negative) Urine Ketones (Negative) Urine Blood (Negative) Urine Nitrite (Negative) Urine Bilirubin (Negative) Urine Urobilinogen (<2.0) mg/dL Ur Leukocyte Esterase (Negative) Urine RBC (0-5) /hpf Urine WBC (0-5) /hpf Hyaline Casts (0-2) /lpf Urine Mucus (None) /hpf Blood Type Blood Type Recheck Bld Type Recheck Status Antibody Screen Spec Expiration Date 07/16/24 07/16/24 07/16/24 Range/Units 18:11 18:11 18:20 WBC (3.8-10.6) k/uL RBC (4.30-5.90) m/uL Hgb (13.0-17.5) gm/dL Hct (39.0-53.0) % MCV (80.0-100.0) fL MCH (25.0-35.0) pg MCHC (31.0-37.0) g/dL RDW (11.5-15.5) % Plt Count (150-450) k/uL MPV Neutrophils % % Lymphocytes % % Monocytes % % Eosinophils % % Basophils % % Neutrophils # (1.3-7.7) k/uL Lymphocytes # (1.0-4.8) k/uL Monocytes # (0-1.0) k/uL Eosinophils # (0-0.7) k/uL Basophils # (0-0.2) k/uL PT 10.7 (10.0-12.5) sec INR 1.0 (<1.2) Sodium (137-145) mmol/L Potassium (3.5-5.1) mmol/L Chloride (98-107) mmol/L Carbon Dioxide (22-30) mmol/L Anion Gap mmol/L BUN (9-20) mg/dL Creatinine (0.66-1.25) mg/dL Est GFR (CKD-EPI)AfAm (>60 ml/min/1.73 sqM) Est GFR (CKD-EPI)NonAf (>60 ml/min/1.73 sqM) Glucose (74-99) mg/dL Plasma Lactic Acid Aubrey (0.7-2.0) mmol/L Calcium (8.4-10.2) mg/dL Total Bilirubin (0.2-1.3) mg/dL AST (17-59) U/L ALT (4-49) U/L Alkaline Phosphatase (38-126) U/L Total Protein (6.3-8.2) g/dL Albumin (3.5-5.0) g/dL Lipase (23-300) U/L Urine Color Yellow Urine Appearance Clear (Clear) Urine pH 6.0 (5.0-8.0) Ur Specific [place] 1.021 (1.001-1.035) Urine Protein 1+ H (Negative) Urine Glucose (UA) Negative (Negative) Urine Ketones 1+ H (Negative) Urine Blood Large H (Negative) Urine Nitrite Negative (Negative) Urine Bilirubin Negative (Negative) Urine Urobilinogen <2.0 (<2.0) mg/dL Ur Leukocyte Esterase Moderate H (Negative) Urine RBC >182 H (0-5) /hpf Urine WBC 34 H (0-5) /hpf Hyaline Casts 1 (0-2) /lpf Urine Mucus Occasional H (None) /hpf Blood Type B Positive Blood Type Recheck B Pos Bld Type Recheck Status No Antibody Screen NEGATIVE Spec Expiration Date 07/19/20242310 Disposition Clinical Impression: S/P prostatectomy, Abdominal pain, Leukocytosis, Hyponatremia Disposition: ADMITTED IP TO THIS [facility] Condition: Stable Is patient prescribed a controlled substance at d/c from ED?: No Time of Disposition: 20:48 Decision to Admit Reason: Admit from EC Decision Date: 07/16/24 Decision Time: 20:48
[2024-07-16 21:38] LABS: Sodium 124 mmol/L (137-145)
[2024-07-16] MEDS: cefTRIAXone IN SWFI 1,000 MG/10 ML SYRINGE IVP STA (22:22)
[2024-07-16] MEDS: SODIUM CHLORIDE 0.9% 1,000 ML IV SCH (22:24)
[2024-07-16] MEDS: SODIUM CHLORIDE 0.9% 500 ML 500 ML IV ONE (22:28)
--- NOTE | 2024-07-16 23:12 | P.HPIM ---
History of Present Illness H&P Date: 07/16/24 Chief Complaint: Abdominal pain status post prostatectomy Patient is a 58-year-old male with past medical history of hypertension, and prostate cancer (status post a radical prostatectomy on July 13, 2024) presented to the emergency department with abdominal pain. Per operative note on 07/13/2024, patient tolerated the surgery well without any complications intraoperatively. Patient was recently discharged home on the with Toradol and ciprofloxacin. Patient reported that since the surgery he has been having constant sharp stabbing right lower quadrant abdominal pain that seems to get worse with walking around. Patient reports that eating food/drinking fluids would make the abdominal pain worse. Reports having gas-like sensation in his belly. Also reported that his penile shaft and testicles started to swell this afternoon at around 1 PM. He feels like the testicular swelling has been getting worse. Patient currently has a Jackson catheter in place and blood was noted in his urine. Patient reports that the hematuria is not something new and has been ongoing. Patient stopped taking Toradol because it was irritating to his stomach. Patient also endorses chills, nausea. Denies fever, vomiting, chest pain, shortness of breath, diarrhea or constipation, tingling or numbness sensation in upper or lower extremities. ED documentation reviewed. In the ED patient was treated with Rocephin 1000 mg IV x 1, half bolus of normal saline, maintenance normal saline fluid at 130 cc an hour. Vitals on admission temperature 98.9, pulse rate 76, respiratory rate 16, blood pressure 140/93, saturating at 98% on room air CT abdomen and pelvis shows extensive subcutaneous gas and edema tracking along the anterior abdominal wall and extending into the scrotum with bilateral hydroceles. Infection is not excluded at this time. Follow-up with surgeon and correlation with history recommended. No discrete organizing fluid collections at this time other than the fluid in the scrotum. Mild wall thickening of the transverse colon correlate for some colitis. Labs on admission show WBC 13.8, hemoglobin 12.5, hematocrit 36.7, platelet 259, PT 10.7, INR 1.0, sodium 125, potassium 3.9, chloride 92, carbon dioxide 27, BUN 11, creatinine 0.58, glucose 100, lactic acid 0.8, lipase 55 UA shows urine WBC 34, moderate leukocyte esterase, negative for nitrites Review of systems: Pertinent positives and negatives as discussed in HPI, a complete review of systems was performed and all other systems are negative. PMH: Hypertension, and prostate cancer (status post a radical prostatectomy on July 13, 2024) PSH: Open reduction internal fixation of left shoulder, left carpal tunnel surgery on October 10, 2021, history of prostatectomy on July 13, 2024 FMH: Father has a history of CVA/TIA, hypertension Allergies: No known drug allergies Social history: Recreational drugs: No drug use Travel: No recent travel history Sick contacts: No recent sick contacts Physical examination: Vital signs reviewed General: nontoxic, no distress, appears at stated age, well-appearing Derm: warm, dry, intact Head: atraumatic, normocephalic, symmetric Eyes: EOMI, anicteric sclera Mouth: no lip lesion, mucus membranes moist Cardiovascular: S1 S2 reg, no murmur Lungs: CTA bilateral, no rhonchi, no rales, no accessory muscle use Abdominal: Right lower quadrant tender to soft and hard palpation, diffusely distended, guarding was present Genitourinary: Swelling noted in bilateral testicles and shaft of penis Extremities: No cyanosis, clubbing, or pedal edema. Neuro: Alert, Oriented, Gross neurological examination did not reveal any focal deficits. Cranial nerves II to XII grossly intact. Bilateral upper and lower extremity muscle strength 5 out of 5 and sensation intact. Psych: appropriate affect Assessment/Plan: 58-year-old male with past medical history of hypertension and prostate cancer (status post a radical prostatectomy on 07/13/2024) presented to the emergency department with abdominal pain. The patient will be admitted to inpatient medicine service. Active: #. Swelling in bilateral testicles and shaft of penis #. Abdominal pain status post radical prostatectomy on 07/13/2024 #. Hematuria CT abdomen and pelvis shows extensive subcutaneous gas and edema tracking along the anterior abdominal wall and extending into the scrotum with bilateral hydroceles. Infection is not excluded at this time. Follow-up with surgeon and correlation with history recommended. No discrete organizing fluid collections at this time other than the fluid in the scrotum. Consult urology Initiate Zosyn 3.375 g IV every 8 hours Initiate IV vancomycin dosing by pharmacy Continue normal saline at 130 cc an hour #. Leukocytosis, likely secondary to postsurgical inflammation WBC 13.8 Continue to monitor morning CBC #. Hyponatremia likely secondary to dehydration Continue IV fluids at 130 cc an hour Sodium 125 (level has been around 128 since march of this year) monitor Na level q 4 hours , if it starts dropping , consider stopping Normal saline , and workup for SIADH #. Acute colitis CT abdomen pelvis shows mild wall thickening of the transverse colon correlate for some colitis Initiate Zosyn 3.375 g IV every 8 hours Continue normal saline at 130 cc an hour elevated WBC of 13.8 afebrile ,this also could be reactive for post op Chronic: #. Hypertension Restart home losartan 100 mg daily Restart hydrochlorothiazide 25 mg daily F: No restrictions E: Replete as needed N: as tolerated , keep NPO after midnight A: Ambulatory DVT prophylaxis: Lovenox 40 mg subcu daily The patient is admitted with an anticipated more than 2 midnight stay for evaluation of abdominal pain status post radical prostatectomy CODE STATUS: Full code Discussed with: Patient Anticipated discharge place: Home I have seen and evaluated the patient today. I Discussed the case with the resident and agree with the resident's findings I edited the assessment and plan as necessary as documented in the resident's note. Past Medical History Past Medical History: Hypertension, Prostate Disorder Additional Past Medical History / Comment(s): "low hgb" History of Any Multi-Drug Resistant Organisms: None Reported Additional Past Surgical History / Comment(s): ORIF lt shoulder, lt carpel tunnel October 10, 2021. prostatectomy Additional Past Anesthesia/Blood Transfusion Reaction / Comment(s): "felt like worse hangeover I have ever had with shoulder surgery" Past Psychological History: No Psychological Hx Reported Past Drug Use History: None Reported - Past Family History Mother Family Medical History: No Reported History Father Family Medical History: CVA/TIA, Hypertension Medications and Allergies Home Medications Medication Instructions Recorded Confirmed Type Ciprofloxacin HCl [Cipro] 250 mg PO Q12HR #6 tablet 07/14/24 07/16/24 Rx Ketorolac [Toradol] 10 mg PO Q6HR PRN #15 tab 07/14/24 07/16/24 Rx Losartan/Hydrochlorothiazide 1 tab PO DAILY 07/16/24 07/16/24 History [Losartan-Hctz 100-25 mg Tab] Allergies Allergy/AdvReac Type Severity Reaction Status Date / Time No Known Allergies Allergy Verified 07/16/24 18:47 Physical Exam Vitals: Vital Signs Temp Pulse Resp BP Pulse Ox 12/22/24 19:33 76 16 140/93 07/16/24 18:04 85 20 142/95 98 07/16/24 17:56 98.9 F 84 20 142/95 99 Intake and Output 07/16/24 07/16/24 07/16/24 06:59 14:59 22:59 Other: Weight 78.925 kg Results CBC & Chem 7: 07/16/24 18:11 07/16/24 21:13 Labs: Abnormal Lab Results - Last 24 Hours (Table) 07/16/24 07/16/24 07/16/24 Range/Units 18:11 18:11 18:20 WBC 13.8 H (3.8-10.6) k/uL RBC 3.96 L (4.30-5.90) m/uL Hgb 12.5 L (13.0-17.5) gm/dL Hct 36.7 L (39.0-53.0) % Neutrophils # 11.5 H (1.3-7.7) k/uL Sodium 125 L (137-145) mmol/L Chloride 92 L (98-107) mmol/L Creatinine 0.58 L (0.66-1.25) mg/dL Glucose 100 H (74-99) mg/dL Total Protein 6.1 L (6.3-8.2) g/dL Urine Protein 1+ H (Negative) Urine Ketones 1+ H (Negative) Urine Blood Large H (Negative) Ur Leukocyte Esterase Moderate H (Negative) Urine RBC >182 H (0-5) /hpf Urine WBC 34 H (0-5) /hpf Urine Mucus Occasional H (None) /hpf
[2024-07-17] MEDS ORDERED: VANCOMYCIN IV PER PHARMACY 1 EACH MISC MISCELLANE PRN
[2024-07-17] MEDS: PIPERACILLIN-TAZOBACTAM 3.375 GM in SODIUM CHLORIDE 0.9% 100 ML IVPB SCH (00:20)
[2024-07-17] MEDS: VANCOMYCIN 1,250 MG in SODIUM CHLORIDE 0.9% 250 ML IVPB ONE (02:42)
[2024-07-17] MEDS: ACETAMINOPHEN TAB 325 MG TAB PO PRN (04:51)
[2024-07-17] MEDS: SIMETHICONE 80 MG CHEWABLE PO SCH (04:54)
[2024-07-17] MEDS ORDERED: LOSARTAN 50 MG TAB PO SCH (09:00)
[2024-07-17] MEDS ORDERED: LOSARTAN-HCTZ 50-12.5 MG 1 EACH TAB PO SCH (09:00)
[2024-07-17] MEDS: ENOXAPARIN 40 MG/0.4 ML SYRINGE SQ SCH (09:00)
[2024-07-17 09:10] LABS: Blood Urea Nitrogen 8.6 mg/dL (9.0-27.0); Chloride 94 mmol/L (96-109); Glucose 92 mg/dL (70-110); Potassium 3.6 mmol/L (3.5-5.5); Sodium 128 mmol/L (135-145)
[2024-07-17 09:11] LABS: Basophils # (A) 0.03 X 10*3/uL (0.00-0.10); Basophils % (A) 0.3 %; Calcium 8.1 mg/dL (8.7-10.3); Eosinophils # (A) 0.05 X 10*3/uL (0.04-0.35); Eosinophils % (A) 0.5 %; HCT 32.8 % (39.6-50.0); Lymphocytes # (A) 0.96 X 10*3/uL (0.90-5.00); Lymphocytes % (A) 9.5 %; MCH 30.7 pg (27.0-32.0); MCHC 33.5 g/dL (32.0-37.0); MCV 91.6 FL (80.0-97.0); Mean Platelet Volume 9.3 FL (9.5-12.2); Monocytes # (A) 0.82 X 10*3/uL (0.20-1.00); Monocytes % (A) 8.1 %; NRBC Per 100 WBC 0 X 10*3/uL (0.00-0.01); Neutrophils # (A) 8.18 X 10*3/uL (1.80-7.70); Neutrophils % (A) 81.2 %; Platelet Count 241 X 10*3/uL (140-440); RBC 3.58 X 10*6/uL (4.40-5.60); RDW 11.8 % (11.5-14.5); WBC 10.08 X 10*3/uL (4.50-10.00)
--- NOTE | 2024-07-17 10:30 | P.NPCON ---
History of Present Illness - Reason for Consult hyponatremia - History of Present Illness Reason for consultation: Hyponatremia History of present illness: Patient is a 58-year-old male seen in renal consultation for hyponatremia. Patient sodium level on admission yesterday was 125. He has been receiving normal saline at 130 cc an hour overnight and sodium level this morning was given with 2 different readings at 125 and 128. Patient states he underwent prostatectomy on July 13, 2024 due to prostate cancer. Patient states the next day he noticed swelling of the scrotum and came to the hospital. Patient states he has been taking Toradol for pain and last took it once yesterday. He was also taking hydrochlorothiazide outpatient. Oral intake had been poor the last couple of days. He has been drinking but denies excessive fluid intake. No vomiting or diarrhea. No chest pain or shortness of breath. No gross hematuria or dysuria. No history of kidney disease. GFR is at baseline. Vital signs are stable. General: No acute distress. HEENT: Head exam is unremarkable. LUNGS: No audible rhonchi or wheezes. HEART: Rate and Rhythm are regular. ABDOMEN: Nontender. EXTREMITITES: No edema. Past Medical History Past Medical History: Hypertension, Prostate Disorder Additional Past Medical History / Comment(s): "low hgb" History of Any Multi-Drug Resistant Organisms: None Reported Additional Past Surgical History / Comment(s): ORIF lt shoulder, lt carpel tunnel October 10, 2021. prostatectomy Additional Past Anesthesia/Blood Transfusion Reaction / Comment(s): "felt like worse hangeover I have ever had with shoulder surgery" Past Psychological History: No Psychological Hx Reported Past Drug Use History: None Reported - Past Family History Mother Family Medical History: No Reported History Father Family Medical History: CVA/TIA, Hypertension Medications and Allergies Home Medications Medication Instructions Recorded Confirmed Type Ciprofloxacin HCl [Cipro] 250 mg PO Q12HR #6 tablet 07/14/24 07/16/24 Rx Ketorolac [Toradol] 10 mg PO Q6HR PRN #15 tab 07/14/24 07/16/24 Rx Losartan/Hydrochlorothiazide 1 tab PO DAILY 07/16/24 07/16/24 History [Losartan-Hctz 100-25 mg Tab] Allergies Allergy/AdvReac Type Severity Reaction Status Date / Time No Known Allergies Allergy Verified 07/16/24 18:47 Physical Exam Vitals: Vital Signs Temp Pulse Pulse Resp BP BP Pulse Ox 07/17/24 07:07 98.5 F 71 18 157/85 99 07/17/24 01:54 98.5 F 75 14 151/85 99 07/17/24 01:53 98.6 F 78 14 154/94 99 07/16/24 22:42 75 14 07/16/24 19:33 76 16 140/93 07/16/24 18:04 85 20 142/95 98 07/16/24 17:56 98.9 F 84 20 142/95 99 Intake and Output 07/16/24 07/17/24 07/17/24 22:59 06:59 14:59 Intake Total 2625 Output Total 1500 Balance 1125 Intake: Intake, IV Titration 1005 Amount Piperacillin-Tazobactam 3 100 .375 gm In Sodium Chloride 0.9% 100 ml @ 25 mls/hr IVPB Q8HR [facility] Rx# :[id number] Sodium Chloride 0.9% 1, 780 000 ml @ 130 mls/hr IV . Q7H42M [facility] Rx#:[id number] Vancomycin 1,250 mg In 125 Sodium Chloride 0.9% 250 ml @ 125 mls/hr IVPB Q8H [facility] Rx#:[id number] Oral 1620 Output: Urine 1500 Other: Voiding Method Indwelling Catheter # Bowel Movements 1 Weight 78.925 kg Results - Lab Results Most recent lab results Calcium 8.1 mg/dL (8.7-10.3) L 07/17/24 05:19 07/17/24 05:19 07/17/24 05:19 Assessment and Plan Plan: Assessment: 1. Hyponatremia secondary to SIADH and poor solute intake. Worsened with the use of NSAIDs and thiazide diuretic. No significant improvement in sodium level despite IV fluids. Sodium level 125 this morning. TSH normal. 2. Prostate cancer status post radical prostatectomy with bilateral pelvic lymph node dissection July 13, 2024. 3. Benign hypertension. Plan: Hep-Lock IV fluids. Encouraged oral intake. Add 1500 cc fluid restriction. Check urine osmolality, urine sodium level. Thiazide diuretic now discontinued. He did take it this morning. Avoid NSAIDs. Repeat labs in the morning. Thank you for the consultation. I will continue to follow the patient with you during his hospital stay.
[2024-07-17] MEDS ORDERED: VANCOMYCIN 1,250 MG in SODIUM CHLORIDE 0.9% 250 ML IVPB SCH (11:00)
[2024-07-17] MEDS: LOSARTAN 50 MG TAB PO SCH (11:16)
[2024-07-17] MEDS: POTASSIUM CHLORIDE ER 20 MEQ TAB.ER PO STA (12:28)
[2024-07-17] MEDS: metroNIDAZOLE-NS PMX 500 MG in SALINE 1 100ML.BAG IVPB SCH (16:11)
--- NOTE | 2024-07-17 16:16 | P.PN ---
Subjective Progress Note Date: 07/17/2407/17. Patient seen and examined laying in bed. No acute events overnight. Reports abdominal pain and scrotal swelling unchanged from yesterday. Reports 2 episodes of nonbloody diarrhea this morning. Denies fever, chills, nausea/vomiting, hematuria, chest pain, dyspnea. Labs today: WBC 10.08, hemogl obin 11, platelets 241, sodium 125, potassium 3.6, chloride 94, BUN 8.6, creatinine 0.5, calcium 8.1. Pertinent positives and negatives discussed above, a complete review of systems was performed and all the other systems were negative. Physical examination: Vital signs reviewed General: Nontoxic, no distress, appears stated age, well-appearing Derm: Warm, dry, intact Head: Atraumatic, normocephalic, symmetric Eyes: EOMI, anicteric sclera Mouth: No lip lesion, mucus membranes moist Cardiovascular: S1-S2 regular, no murmur Lungs: CTA bilateral, no rhonchi, no rales, no accessory muscle use Abdominal: Tenderness to light and deep palpation worse on right lower quadrant, diffusely distended, guarding was present Genitourinary: Swelling noted in bilateral testicles Extremities: No cyanosis, clubbing, or pedal edema Neuro: Alert, oriented x 3, gross neurological examination did not reveal any focal deficits. Cranial nerves II to XII grossly intact. Psych: Appropriate affect and mood Assessment and Plan: Patient is a 58-year-old male with past medical history of hypertension and prostate cancer (status post a radical prostatectomy on 07/13/2024) admitted for abdominal pain and bilateral hydrocele. Active #. Edema and subcutaneous emphysema bilateral testicles, secondary to radical prostatectomy-anticipatory outcome of surgery #. Abdominal pain status post radical prostatectomy on 07/13/2024-anticipatory outcome of surgery #. Acute colitis-CT abdomen pelvis shows mild wall thickening of the transverse colon correlate for some colitis #. Hematuria, improving CT abdomen and pelvis shows extensive subcutaneous gas and edema tracking along the anterior abdominal wall and extending into the scrotum with bilateral hydroceles. Infection is not excluded at this time. No discrete organizing fluid collections at this time other than the fluid in the scrotum. Urology consulted IV ceftriaxone 2 g every 24 hours IV metronidazole 500 mg every 8 hours #. Leukocytosis, likely secondary to postsurgical inflammation, improving Monitor CBC #. Euvolemic hyponatremia Nephrology consulted, note reviewed: Discontinue 0.9% saline, 1500 cc fluid restriction, discontinue thiazide diuretic Obtain urine sodium and osmolality Chronic #. Hypertension Continue home losartan 100 mg daily Hold hydrochlorothiazide 25 mg daily F: 1500 cc restriction E: Replete as required N: Regular diet, fluid restriction 1500 cc A: Ambulatory DVT prophylaxis: SCDs Code status: Full code Anticipated discharge place: Home I have seen and evaluated the patient today. Discussed with the resident and agree with the residents finding and plan as documented in the resident's note. Changes highlighted in blue font. Objective - Vital Signs Vital signs: Vital Signs Temp 98.5 F 07/17/24 01:54 Pulse 75 07/17/24 01:54 Resp 14 07/17/24 01:54 BP 151/85 07/17/24 01:54 Pulse Ox 99 07/17/24 01:54 FiO2 Intake & Output 07/16/24 07/17/24 07/17/24 18:59 06:59 18:59 Intake Total 2625 Output Total 1500 Balance 1125 Weight 78.925 kg 78.925 kg Intake: Intake, IV Titration 1005 Amount Piperacillin-Tazobactam 3 100 .375 gm In Sodium Chloride 0.9% 100 ml @ 25 mls/hr IVPB Q8HR [facility] Rx# :[id number] Sodium Chloride 0.9% 1, 780 000 ml @ 130 mls/hr IV . Q7H42M [facility] Rx#:[id number] Vancomycin 1,250 mg In 125 Sodium Chloride 0.9% 250 ml @ 125 mls/hr IVPB Q8H [facility] Rx#:[id number] Oral 1620 Output: Urine 1500 Other: Voiding Method Indwelling Catheter # Bowel Movements 1 - Labs CBC & Chem 7: 07/17/24 05:19 07/17/24 05:19 Labs: Abnormal Lab Results - Last 24 Hours (Table) 07/16/24 07/16/24 07/16/24 Range/Units 18:11 18:11 18:20 WBC 13.8 H (3.8-10.6) k/uL RBC 3.96 L (4.30-5.90) m/uL Hgb 12.5 L (13.0-17.5) gm/dL Hct 36.7 L (39.0-53.0) % Neutrophils # 11.5 H (1.3-7.7) k/uL Sodium 125 L (137-145) mmol/L Chloride 92 L (98-107) mmol/L Creatinine 0.58 L (0.66-1.25) mg/dL Glucose 100 H (74-99) mg/dL Total Protein 6.1 L (6.3-8.2) g/dL Urine Protein 1+ H (Negative) Urine Ketones 1+ H (Negative) Urine Blood Large H (Negative) Ur Leukocyte Esterase Moderate H (Negative) Urine RBC >182 H (0-5) /hpf Urine WBC 34 H (0-5) /hpf Urine Mucus Occasional H (None) /hpf 07/16/24 07/17/24 07/17/24 Range/Units 21:13 00:40 05:19 WBC (3.8-10.6) k/uL RBC (4.30-5.90) m/uL Hgb (13.0-17.5) gm/dL Hct (39.0-53.0) % Neutrophils # (1.3-7.7) k/uL Sodium 124 L 126 L 125 L (137-145) mmol/L Chloride (98-107) mmol/L Creatinine (0.66-1.25) mg/dL Glucose (74-99) mg/dL Total Protein (6.3-8.2) g/dL Urine Protein (Negative) Urine Ketones (Negative) Urine Blood (Negative) Ur Leukocyte Esterase (Negative) Urine RBC (0-5) /hpf Urine WBC (0-5) /hpf Urine Mucus (None) /hpf
--- NOTE | 2024-07-17 18:36 | P.GSCN ---
History of Present Illness Consult date: 07/17/24 Reason for Consult: Prostate cancer History of present illness: This is a 58-year-old male that underwent a robotic radical prostatectomy on and was subsequently discharged home on July 14. No IntraOp complication. Presented to the hospital last night and was admitted for hyponatremia and abdominal pain, underwent a CT abdomen pelvis that was consistent with postoperative finding. Patient was afebrile on presentation no evidence of gross hematuria. He indicated he has been having right lower quadrant abdominal pain with radiation down to the bilateral testicle with worsening testicular swelling and edema. Hemodynamically he is stable Review of Systems - Constitutional Denies fever, Denies weight loss - EENT Ears, nose, mouth and throat: Denies dysphagia - Cardiovascular Denies chest pain, Denies shortness of breath - Respiratory Denies cough, Denies 7 - Gastrointestinal Reports abdominal pain, Reports loss of appetite, Denies nausea, Denies vomiting Past Medical History Past Medical History: Hypertension, Prostate Disorder Additional Past Medical History / Comment(s): "low hgb" History of Any Multi-Drug Resistant Organisms: None Reported Additional Past Surgical History / Comment(s): ORIF lt shoulder, lt carpel tunnel October 10, 2021. prostatectomy Additional Past Anesthesia/Blood Transfusion Reaction / Comm: "felt like worse hangeover I have ever had with shoulder surgery" Past Psychological History: No Psychological Hx Reported Past Drug Use History: None Reported - Past Family History Mother Family Medical History: No Reported History Father Family Medical History: CVA/TIA, Hypertension Medications and Allergies Home Medications Medication Instructions Recorded Confirmed Type Ciprofloxacin HCl [Cipro] 250 mg PO Q12HR #6 tablet 07/14/24 07/16/24 Rx Ketorolac [Toradol] 10 mg PO Q6HR PRN #15 tab 07/14/24 07/16/24 Rx Losartan/Hydrochlorothiazide 1 tab PO DAILY 07/16/24 07/16/24 History [Losartan-Hctz 100-25 mg Tab] Allergies Allergy/AdvReac Type Severity Reaction Status Date / Time No Known Allergies Allergy Verified 07/16/24 18:47 Surgical - Exam Vital Signs Temp Pulse Resp BP Pulse Ox 98.9 F 84 20 142/95 99 07/16/24 17:56 07/16/24 17:56 07/16/24 17:56 07/16/24 17:56 07/16/24 17:56 - General no distress, no pain - Eyes normal ocular movement, no pale - ENT normal nares, normal mucosa - Respiratory normal expansion, normal respiratory effort - Abdomen Abdomen: tender (Right lower quadrant) - Genitourinary Ecchymosis extending from the right lower quadrant down to the bilateral scrotum, evidence of scrotal edema Results - Labs 07/17/24 05:19 07/17/24 05:19 Abnormal Lab Results - Last 24 Hours (Table) 07/16/24 07/16/24 07/16/24 Range/Units 18:11 18:11 18:20 WBC 13.8 H (3.8-10.6) k/uL RBC 3.96 L (4.30-5.90) m/uL Hgb 12.5 L (13.0-17.5) gm/dL Hct 36.7 L (39.0-53.0) % MPV (9.5-12.2) FL Neutrophils # 11.5 H (1.3-7.7) k/uL Sodium 125 L (137-145) mmol/L Chloride 92 L (98-107) mmol/L BUN (9.0-27.0) mg/dL Creatinine 0.58 L (0.66-1.25) mg/dL Glucose 100 H (74-99) mg/dL Calcium (8.7-10.3) mg/dL Total Protein 6.1 L (6.3-8.2) g/dL Urine Protein 1+ H (Negative) Urine Ketones 1+ H (Negative) Urine Blood Large H (Negative) Ur Leukocyte Esterase Moderate H (Negative) Urine RBC >182 H (0-5) /hpf Urine WBC 34 H (0-5) /hpf Urine Mucus Occasional H (None) /hpf Ur Random Sodium (40-220) mmol/L 07/16/24 07/16/24 07/17/24 Range/Units 18:20 21:13 00:40 WBC (3.8-10.6) k/uL RBC (4.30-5.90) m/uL Hgb (13.0-17.5) gm/dL Hct (39.0-53.0) % MPV (9.5-12.2) FL Neutrophils # (1.3-7.7) k/uL Sodium 124 L 126 L (137-145) mmol/L Chloride (98-107) mmol/L BUN (9.0-27.0) mg/dL Creatinine (0.66-1.25) mg/dL Glucose (74-99) mg/dL Calcium (8.7-10.3) mg/dL Total Protein (6.3-8.2) g/dL Urine Protein (Negative) Urine Ketones (Negative) Urine Blood (Negative) Ur Leukocyte Esterase (Negative) Urine RBC (0-5) /hpf Urine WBC (0-5) /hpf Urine Mucus (None) /hpf Ur Random Sodium <20 L (40-220) mmol/L 07/17/24 07/17/24 07/17/24 Range/Units 05:19 05:19 05:19 WBC 10.08 H (3.8-10.6) k/uL RBC 3.58 L (4.30-5.90) m/uL Hgb 11.0 L (13.0-17.5) gm/dL Hct 32.8 L (39.0-53.0) % MPV 9.3 L (9.5-12.2) FL Neutrophils # 8.18 H (1.3-7.7) k/uL Sodium 128 L 125 L (137-145) mmol/L Chloride 94 L (98-107) mmol/L BUN 8.6 L (9.0-27.0) mg/dL Creatinine 0.5 L (0.66-1.25) mg/dL Glucose (74-99) mg/dL Calcium 8.1 L (8.7-10.3) mg/dL Total Protein (6.3-8.2) g/dL Urine Protein (Negative) Urine Ketones (Negative) Urine Blood (Negative) Ur Leukocyte Esterase (Negative) Urine RBC (0-5) /hpf Urine WBC (0-5) /hpf Urine Mucus (None) /hpf Ur Random Sodium (40-220) mmol/L Diabetes panel 07/16/24 07/16/24 07/17/24 Range/Units 18:11 21:13 00:40 Sodium 125 L 124 L 126 L (137-145) mmol/L Potassium 3.9 (3.5-5.1) mmol/L Chloride 92 L (98-107) mmol/L Carbon Dioxide 27 (22-30) mmol/L BUN 11 (9-20) mg/dL Creatinine 0.58 L (0.66-1.25) mg/dL Glucose 100 H (74-99) mg/dL Calcium 8.9 (8.4-10.2) mg/dL AST 22 (17-59) U/L ALT 22 (4-49) U/L Alkaline Phosphatase 62 (38-126) U/L Total Protein 6.1 L (6.3-8.2) g/dL Albumin 3.9 (3.5-5.0) g/dL 07/17/24 07/17/24 Range/Units 05:19 05:19 Sodium 128 L 125 L (137-145) mmol/L Potassium 3.6 (3.5-5.1) mmol/L Chloride 94 L (98-107) mmol/L Carbon Dioxide 24.0 (22-30) mmol/L BUN 8.6 L (9-20) mg/dL Creatinine 0.5 L (0.66-1.25) mg/dL Glucose 92 (74-99) mg/dL Calcium 8.1 L (8.4-10.2) mg/dL AST (17-59) U/L ALT (4-49) U/L Alkaline Phosphatase (38-126) U/L Total Protein (6.3-8.2) g/dL Albumin (3.5-5.0) g/dL Thyroid panel 07/16/24 Range/Units 21:13 TSH 3.820 (0.465-4.680) mIU/L Calcium panel 07/16/24 07/17/24 Range/Units 18:11 05:19 Calcium 8.9 8.1 L (8.4-10.2) mg/dL Albumin 3.9 (3.5-5.0) g/dL Pituitary panel 07/16/24 07/16/24 07/17/24 Range/Units 18:11 21:13 00:40 Sodium 125 L 124 L 126 L (137-145) mmol/L Potassium 3.9 (3.5-5.1) mmol/L Chloride 92 L (98-107) mmol/L Carbon Dioxide 27 (22-30) mmol/L BUN 11 (9-20) mg/dL Creatinine 0.58 L (0.66-1.25) mg/dL Glucose 100 H (74-99) mg/dL Calcium 8.9 (8.4-10.2) mg/dL TSH 3.820 (0.465-4.680) mIU/L 07/17/24 07/17/24 Range/Units 05:19 05:19 Sodium 128 L 125 L (137-145) mmol/L Potassium 3.6 (3.5-5.1) mmol/L Chloride 94 L (98-107) mmol/L Carbon Dioxide 24.0 (22-30) mmol/L BUN 8.6 L (9-20) mg/dL Creatinine 0.5 L (0.66-1.25) mg/dL Glucose 92 (74-99) mg/dL Calcium 8.1 L (8.4-10.2) mg/dL TSH (0.465-4.680) mIU/L Adrenal panel 07/16/24 07/16/24 07/17/24 Range/Units 18:11 21:13 00:40 Sodium 125 L 124 L 126 L (137-145) mmol/L Potassium 3.9 (3.5-5.1) mmol/L Chloride 92 L (98-107) mmol/L Carbon Dioxide 27 (22-30) mmol/L BUN 11 (9-20) mg/dL Creatinine 0.58 L (0.66-1.25) mg/dL Glucose 100 H (74-99) mg/dL Calcium 8.9 (8.4-10.2) mg/dL Total Bilirubin 0.8 (0.2-1.3) mg/dL AST 22 (17-59) U/L ALT 22 (4-49) U/L Alkaline Phosphatase 62 (38-126) U/L Total Protein 6.1 L (6.3-8.2) g/dL Albumin 3.9 (3.5-5.0) g/dL 07/17/24 07/17/24 Range/Units 05:19 05:19 Sodium 128 L 125 L (137-145) mmol/L Potassium 3.6 (3.5-5.1) mmol/L Chloride 94 L (98-107) mmol/L Carbon Dioxide 24.0 (22-30) mmol/L BUN 8.6 L (9-20) mg/dL Creatinine 0.5 L (0.66-1.25) mg/dL Glucose 92 (74-99) mg/dL Calcium 8.1 L (8.4-10.2) mg/dL Total Bilirubin (0.2-1.3) mg/dL AST (17-59) U/L ALT (4-49) U/L Alkaline Phosphatase (38-126) U/L Total Protein (6.3-8.2) g/dL Albumin (3.5-5.0) g/dL Assessment and Plan Assessment: 58-year-old male admitted to the hospital. Operatively following a radical prostatectomy with hyponatremia. I reviewed his CT it is all consistent with postoperative findings, air in the peritoneal cavity and the secondary to insufflation during his robotic surgery. Given the ecchymosis along the right lower quadrant and extending to the scrotum is evidence of some subcutaneous bleeding, which should resolve with conservative treatment management. Of note patient did receive Lovenox 40 mg which has subsequently been discontinued -No acute surgical intervention from urology standpoint -Keep Jackson catheter in place, patient will be discharged home with a Jackson catheter -From urology standpoint he is stable for discharge if cleared by medical and nephrology
[2024-07-18 02:09] VITALS: TEMP 98.4
[2024-07-18 08:20] VITALS: BP 157/87; PULSE 66; RESP 16
[2024-07-18 09:28] LABS: Blood Urea Nitrogen 7.8 mg/dL (9.0-27.0); Calcium 8.5 mg/dL (8.7-10.3); Carbon Dioxide 23.9 mmol/L (21.6-31.8); Chloride 98 mmol/L (96-109); Glucose 100 mg/dL (70-110); Potassium 3.9 mmol/L (3.5-5.5); Sodium 130 mmol/L (135-145)
--- NOTE | 2024-07-18 10:54 | P.PN ---
Subjective Patient is seen in follow-up for hyponatremia. Sodium level up to 130 today. Oral intake fair. On fluid restriction. No vomiting or diarrhea. Vital signs are stable. General: No acute distress. HEENT: Head exam is unremarkable. LUNGS: No audible rhonchi or wheezes. HEART: Rate and Rhythm are regular. ABDOMEN: Nontender. EXTREMITITES: No edema. Objective - Vital Signs Vital signs: Vital Signs Temp 98.4 F 07/18/24 07:40 Pulse 66 07/18/24 07:40 Resp 16 07/18/24 07:40 BP 157/87 07/18/24 07:40 Pulse Ox 99 07/18/24 07:40 FiO2 Intake & Output 07/17/24 07/18/24 07/18/24 18:59 06:59 18:59 Intake Total 240 580 Output Total 1800 1900 Balance -1560 -1320 Intake: Intake, IV Titration 100 Amount metroNIDAZOLE-NS PMX 500 100 mg In Saline 1 100ml.bag @ 100 mls/hr IVPB Q8HR [facility] Rx#:[id number] Oral 240 480 Output: Urine 1800 1900 Other: Voiding Method Indwelling Catheter Indwelling Catheter Indwelling Catheter - Labs CBC & Chem 7: 07/17/24 05:19 07/18/24 04:37 Labs: Abnormal Lab Results - Last 24 Hours (Table) 07/17/24 07/18/24 Range/Units 05:19 04:37 Sodium 130 L (135-145) mmol/L BUN 7.8 L (9.0-27.0) mg/dL Osmolality 262 L (275-295) mOsm/kg Calcium 8.5 L (8.7-10.3) mg/dL Assessment and Plan Plan: Assessment: 1. Hyponatremia secondary to SIADH and poor solute intake. Worsened with the use of NSAIDs and thiazide diuretic. No significant improvement in sodium level despite IV fluids. Sodium level 130 this morning. TSH normal. Urine sodium less than 20 initially but repeat 151. Urine osmolality 520. TSH normal. 2. Prostate cancer status post radical prostatectomy with bilateral pelvic lymph node dissection July 13, 2024. 3. Benign hypertension. Plan: Encouraged oral intake. Maintain fluid restriction. Thiazide diuretic now discontinued. Last given July 17, 2024. Avoid NSAIDs. Add amlodipine 5 mg once daily. Repeat labs in the morning. Repeat BMP and magnesium level 2 to 3 days postdischarge. Follow-up outpatient in 1 week.
--- NOTE | 2024-07-18 12:49 | P.PN ---
Subjective Progress Note Date: 07/18/24 Discharge Diagnosis: #. Euvolemic hyponatremia, likely SIADH #. Edema and subcutaneous emphysema bilateral testicles, secondary to radical prostatectomy-anticipatory outcome of surgery #. Abdominal pain status post radical prostatectomy on 07/13/2024-anticipatory outcome of surgery #. Acute colitis #. Hematuria, improving #. Leukocytosis, likely secondary to postsurgical inflammation, improving #. Hypertension Hospital Course: 58-year-old male with past medical history of hypertension, and prostate cancer (status post a radical prostatectomy on July 13, 2024) presented to the emergency department with abdominal pain. In the ED patient was treated with Rocephin 1000 mg IV x 1, half bolus of normal saline, maintenance normal saline fluid at 130 cc an hour. Vitals on admission temperature 98.9, pulse rate 76, respiratory rate 16, blood pressure 140/93, saturating at 98% on room air CT abdomen and pelvis shows extensive subcutaneous gas and edema tracking along the anterior abdominal wall and extending into the scrotum with bilateral hydroceles. Infection is not excluded at this time. Follow-up with surgeon and correlation with history recommended. No discrete organizing fluid collections at this time other than the fluid in the scrotum. Mild wall thickening of the transverse colon correlate for some colitis. Labs on admission show WBC 13.8, hemoglobin 12.5, hematocrit 36.7, platelet 259, PT 10.7, INR 1.0, sodium 125, potassium 3.9, chloride 92, carbon dioxide 27, BUN 11, creatinine 0.58, glucose 100, lactic acid 0.8, lipase 55 UA shows urine WBC 34, moderate leukocyte esterase, negative for nitrites Patient was continued on IV antibiotics. Hydrochlorothiazide discontinued. Nephrology consulted. Was placed on fluid restriction, sodium improved to 130. Abdominal pain has also improved. Patient will follow-up outpatient with urology, PCP and repeat BMP in 3 days. Patient seen and examined at bedside. Vital signs reviewed and stable. General: Nontoxic, no distress, appears at stated age, Jackson catheter in place Derm: Warm, dry, testicular bilateral edema and erythema Head: Atraumatic, normocephalic, symmetric Eyes: EOMI, no lid lag, anicteric sclera Mouth: No lip lesion, mucus membranes moist Cardiovascular: S1S2 reg, no murmur Lungs: CTA bilateral, no rhonchi, no rales, no accessory muscle use Abdominal: Soft, nontender to palpation, no guarding, no appreciable organomegaly Ext: No gross muscle atrophy, no edema, no contractures Neuro: CN II-XI grossly intact, no focal neuro deficits Psych: Alert, oriented, appropriate affect A total of 36 minutes of time were spent preparing this complex discharge summary. Patient was discharged on 07/18/2024 at 1246. Objective - Vital Signs Vital signs: Vital Signs Temp 98.4 F 07/18/24 07:40 Pulse 66 07/18/24 07:40 Resp 16 07/18/24 07:40 BP 157/87 07/18/24 07:40 Pulse Ox 99 07/18/24 07:40 FiO2 Intake & Output 07/17/24 07/18/24 07/18/24 18:59 06:59 18:59 Intake Total 240 580 Output Total 1800 1900 Balance -1560 -1320 Intake: Intake, IV Titration 100 Amount metroNIDAZOLE-NS PMX 500 100 mg In Saline 1 100ml.bag @ 100 mls/hr IVPB Q8HR [facility] Rx#:[id number] Oral 240 480 Output: Urine 1800 1900 Other: Voiding Method Indwelling Catheter Indwelling Catheter Indwelling Catheter - Labs CBC & Chem 7: 07/17/24 05:19 07/18/24 04:37 Labs: Abnormal Lab Results - Last 24 Hours (Table) 07/17/24 07/18/24 Range/Units 05:19 04:37 Sodium 130 L (135-145) mmol/L BUN 7.8 L (9.0-27.0) mg/dL Osmolality 262 L (275-295) mOsm/kg Calcium 8.5 L (8.7-10.3) mg/dL
[2024-07-18] MEDS: amLODIPine 5 MG TAB PO SCH (13:24)
== END 2024-07-18 14:06 | disposition home or self-care (01) ==
LOC: EC 17:41 → 5NMEDONC 20:48
PROVIDERS: ADMIT Internal Medicine; ATTEND Internal Medicine
DX: E22.2 Syndrome of inappropriate secretion of antidiuretic hormone (principal); R10.9 Unspecified abdominal pain; N44.8 Other noninflammatory disorders of the testis; C61 Malignant neoplasm of prostate; I10 Essential (primary) hypertension; K52.9 Noninfective gastroenteritis and colitis, unspecified; N43.3 Hydrocele, unspecified; D72.829 Elevated white blood cell count, unspecified; R31.9 Hematuria, unspecified; Z79.899 Other long term (current) drug therapy; Z90.79 Acquired absence of other genital organ(s); Z98.890 Other specified postprocedural states
CPT/HCPCS: 96365; 96366 ×2; 96367; 96372; 96368; 96376; 99285; 36415; 86900; 86901; 84300 ×2; 83930; 80053; 80048 ×2; 84443; 83605; 83690; 83735; 84295 ×2; 85025 ×2; 85610; 86850; 81001; 83935; 87040; 74177; G0378 ×3; J2543; J3370; J0696 ×3; J1650; Q9967; J1836 ×2

== ENCOUNTER → 2024-07-21 | Outpatient (CLI) | payer OTHER ==
[2024-07-21 15:49] LABS: BUN/Creat Ratio 18.67 Ratio (12.00-20.00); Blood Urea Nitrogen 11.2 mg/dL (9.0-27.0); Calcium 8.8 mg/dL (8.7-10.3); Carbon Dioxide 25.3 mmol/L (21.6-31.8); Chloride 99 mmol/L (96-109); Glucose 84 mg/dL (70-110); Potassium 4.9 mmol/L (3.5-5.5); Sodium 135 mmol/L (135-145)
== END | disposition home or self-care (01) ==
LOC: LABWHC1 07:12
PROVIDERS: ATTEND Student in an Organized Health Care Education/Training Program
DX: E87.1 Hypo-osmolality and hyponatremia (principal)
CPT/HCPCS: 36415; 80048

== ENCOUNTER → 2024-08-28 | Outpatient (CLI) | payer OTHER ==
[2024-08-29 02:50] LABS: Basophils # (A) 0.06 X 10*3/uL (0.00-0.10); Eosinophils # (A) 0.03 X 10*3/uL (0.04-0.35); Eosinophils % (A) 0.5 %; HCT 36.9 % (39.6-50.0); Lymphocytes # (A) 1.94 X 10*3/uL (0.90-5.00); Lymphocytes % (A) 31.1 %; MCHC 32.5 g/dL (32.0-37.0); MCV 95.3 FL (80.0-97.0); Mean Platelet Volume 9.5 FL (9.5-12.2); Monocytes # (A) 0.51 X 10*3/uL (0.20-1.00); Monocytes % (A) 8.2 %; NRBC Per 100 WBC 0 X 10*3/uL (0.00-0.01); Neutrophils # (A) 3.68 X 10*3/uL (1.80-7.70); Neutrophils % (A) 58.9 %; Platelet Count 252 X 10*3/uL (140-440); RBC 3.87 X 10*6/uL (4.40-5.60); RDW 13.2 % (11.5-14.5); WBC 6.24 X 10*3/uL (4.50-10.00)
[2024-08-29 02:59] LABS: ALT 27 U/L (10-49); AST 29 U/L (14-35); Albumin 4.7 g/dL (3.8-4.9); Albumin/Globulin Ratio 2.24 Ratio (1.60-3.17); Alkaline Phosphatase 72 U/L (41-126); Calcium 9.8 mg/dL (8.7-10.3); Carbon Dioxide 25.9 mmol/L (21.6-31.8); Chloride 101 mmol/L (96-109); Globulin 2.1 g/dL (1.6-3.3); Glucose 75 mg/dL (70-110); Potassium 4.2 mmol/L (3.5-5.5); Sodium 138 mmol/L (135-145); T4, Free (Free Thyroxine) 1.37 ng/dL (0.80-1.80); Total Bilirubin 0.4 mg/dL (0.3-1.2); Total Protein 6.8 g/dL (6.2-8.2)
[2024-08-29 03:02] LABS: Prostate Specific Antigen <0.01 ng/mL (0.000-3.500)
== END | disposition home or self-care (01) ==
LOC: LABWHC1 16:13
PROVIDERS: ATTEND Urology
DX: C61 Malignant neoplasm of prostate (principal); I10 Essential (primary) hypertension
CPT/HCPCS: 36415; 80053; 84153; 84439; 84443; 85025